=== PATIENT | male | born 1965 | race Two or more races ===

== ENCOUNTER 2022-07-07 09:03 | Inpatient (IN) | payer OTHER ==
[~2022-07-07] VITALS: Ht 185.4 cm; Wt 68.2 kg
[2022-07-07 09:44] LABS: Urine Bacteria NONE SEEN /hpf (None Seen); Urine Blood Negative /uL (Negative); Urine Hyaline Cast FEW /lpf (0 - 2); Urine Mucus FEW (None Seen); Urine Specific Gravity 1.023 (1.001-1.035); Urine WBC 1 /hpf (0 - 3)
[2022-07-07 10:58] LABS: Albumin 3.2 g/dL (3.4-5.0); Calcium 8.8 mg/dL (8.5-10.1); Potassium 4.3 mmol/L (3.5-5.1)
[2022-07-07 11:07] LABS: Bilirubin, Total 0.4 mg/dL (0.2-1.0); Total Protein 6.2 g/dL (6.4-8.2)
[2022-07-07 12:04] LABS: Basophils # (auto) 0 10 ^3/uL (0-0.2); Eosinophils # (auto) 0.1 10 ^3/uL (0-0.8); Lymphocytes # (auto) 1.8 10 ^3/uL (0.4-5.4); Monocytes # (auto) 0.8 10 ^3/uL (0-1.3); Nucleated Red Blood Cells % 0.1 %
[2022-07-07 12:06] LABS: Basophils % (auto) 0.3 % (0.0-2.0); Eosinophils % (auto) 0.7 % (0.0-7.0); Hematocrit 44.1 % (41.0-53.0); Hemoglobin 14.1 g/dL (13.5-17.5); Mean Corpuscular Hemoglobin 31.5 pg (28.0-32.0); Mean Corpuscular Volume 98.5 fL (80.0-100.0); Monocytes % (auto) 7.5 % (0.0-12.0); Neutrophils # (auto) 7.7 10 ^3/uL (1.6-8.6); Neutrophils % (auto) 74.5 % (37.0-80.0); Red Blood Cells 4.47 10^6/uL (4.5-5.90); Red Cell Distribution Width 14.9 % (11.8-14.3); White Blood Cell 10.4 10^3/uL (4.4-10.8)
[2022-07-07] MEDS ORDERED: metroNIDAZOLE 500MG/100ML 100 ML IV ONE (12:15)
[2022-07-07] MEDS ORDERED: cefTRIAXone 1GM/50ML D5W 50 ML IV ONE (12:15)
[2022-07-07] MEDS ORDERED: MORPHINE SULFATE INJ 2 MG/ml SYRG IV PRN (14:15)
[2022-07-07] MEDS ORDERED: DOCUSATE SOD 100 MG CAP PO PRN (14:15)
[2022-07-07] MEDS ORDERED: MAGNESIUM SULFATE 1GM/100ML 200 ML IV ONE (14:15)
[2022-07-07] MEDS ORDERED: ONDANSETRON HCL 4 MG/2 ML VIAL IV PRN (14:15)
[2022-07-07] MEDS ORDERED: LORazepam 2MG/ML-1ML VIAL IV PRN (14:15)
[2022-07-07] MEDS: SODIUM CHLORIDE 0.9% 1,000 ML IV SCH (14:15)
[2022-07-07] MEDS ORDERED: FOLIC ACID 1 mg/0.2ml INJECTION INJ ONE (14:45)
[2022-07-07] MEDS ORDERED: THIAMINE 100mg/ml INJ (200mg/2ml VIAL) IV ONE (14:45)
[2022-07-07] MEDS ORDERED: MULTIPLE VITAMIN 10 ML in SODIUM CHLORIDE 0.9% 1,000 ML IV ONE (15:00)
[2022-07-07 15:16] LABS: Blood Alcohol < 3.0 mg/dL (0-5); Magnesium 2.1 mg/dL (1.6-2.6)
[2022-07-07] MEDS ORDERED: MULTIPLE VITAMINS W/ MINERALS TAB PO ONE (15:30)
[2022-07-08] MEDS: SODIUM CHLORIDE 0.9% 1,000 ML IV SCH ×4 (02:00→23:35)
[2022-07-08 05:00] VITALS: BP 122/68
[2022-07-08 06:39] LABS: Basophils # (auto) 0.1 10 ^3/uL (0-0.2); Basophils % (auto) 0.7 % (0.0-2.0); Eosinophils # (auto) 0.2 10 ^3/uL (0-0.8); Hematocrit 42.8 % (41.0-53.0); Hemoglobin 13.9 g/dL (13.5-17.5); Lymphocytes # (auto) 2.3 10 ^3/uL (0.4-5.4); Lymphocytes % (auto) 27.6 % (10.0-50.0); Mean Corpuscular Hemoglobin 31.8 pg (28.0-32.0); Mean Corpuscular Hgb Conc. 32.4 g/dL (32.0-36.0); Mean Corpuscular Volume 98.1 fL (80.0-100.0); Monocytes # (auto) 0.7 10 ^3/uL (0-1.3); Monocytes % (auto) 8.6 % (0.0-12.0); Neutrophils % (auto) 61.1 % (37.0-80.0); Red Blood Cells 4.37 10^6/uL (4.5-5.90); Red Cell Distribution Width 14.4 % (11.8-14.3); White Blood Cell 8.2 10^3/uL (4.4-10.8)
[2022-07-08 07:22] LABS: Albumin 3.1 g/dL (3.4-5.0); BUN/Creatinine Ratio 13.7; Bilirubin, Total 0.7 mg/dL (0.2-1.0); Calcium 8.5 mg/dL (8.5-10.1); Total Protein 6.2 g/dL (6.4-8.2)
[2022-07-08 09:22] VITALS: BP 147/78
[2022-07-08] MEDS ORDERED: FOLIC ACID 1 MG TAB PO ONE (11:15)
[2022-07-08] MEDS: cefTRIAXone 1GM/50ML D5W 50 ML IV SCH (11:43)
[2022-07-08] MEDS: POLYETHYLENE GLYCOL 17 GM PWDR PO SCH (11:44)
[2022-07-08] MEDS: ENOXAPARIN SOD 40 MG/0.4 ML SYRINGE SC SCH (11:44)
[2022-07-08] MEDS: chlordiazePOXIDE HCL 25 MG CAP PO SCH ×3 (11:48→23:36)
[2022-07-08 12:48] VITALS: BP 139/80
[2022-07-08 16:11] VITALS: BP 142/91
[2022-07-08 22:00] VITALS: BP 126/68
[2022-07-09] MEDS: SODIUM CHLORIDE 0.9% 1,000 ML IV SCH ×3 (02:00→19:01)
[2022-07-09 05:00] VITALS: BP 145/84
[2022-07-09] MEDS: chlordiazePOXIDE HCL 25 MG CAP PO SCH ×3 (05:26→18:53)
[2022-07-09 08:57] VITALS: BP 143/81
[2022-07-09] MEDS: cefTRIAXone 1GM/50ML D5W 50 ML IV SCH (10:03)
[2022-07-09] MEDS: FOLIC ACID 1 MG TAB PO SCH (10:04)
[2022-07-09] MEDS: ENOXAPARIN SOD 40 MG/0.4 ML SYRINGE SC SCH (10:04)
[2022-07-09] MEDS: THIAMINE 100mg/ml INJ (200mg/2ml VIAL) IV SCH (10:04)
[2022-07-09] MEDS: POLYETHYLENE GLYCOL 17 GM PWDR PO SCH (10:04)
[2022-07-09 12:59] VITALS: BP 137/72
[2022-07-09 16:54] VITALS: BP 129/76
[2022-07-09 22:00] VITALS: BP 132/88
[2022-07-10] MEDS: chlordiazePOXIDE HCL 25 MG CAP PO SCH ×4 (01:12→17:59)
[2022-07-10] MEDS: SODIUM CHLORIDE 0.9% 1,000 ML IV SCH ×3 (04:18→17:15)
[2022-07-10 05:00] VITALS: BP 148/83
[2022-07-10 09:00] VITALS: BP 150/82
[2022-07-10] MEDS: POLYETHYLENE GLYCOL 17 GM PWDR PO SCH (10:00)
[2022-07-10] MEDS: THIAMINE 100mg/ml INJ (200mg/2ml VIAL) IV SCH (10:09)
[2022-07-10] MEDS: ENOXAPARIN SOD 40 MG/0.4 ML SYRINGE SC SCH (10:09)
[2022-07-10] MEDS: methylPREDNISolone SOD SUCC 125 MG/2 ML VL IV SCH ×3 (10:09→22:34)
[2022-07-10] MEDS: cefTRIAXone 1GM/50ML D5W 50 ML IV SCH (10:10)
[2022-07-10] MEDS: FOLIC ACID 1 MG TAB PO SCH (10:10)
[2022-07-10] MEDS ORDERED: TRAM50TA2 PO (12:16)
[2022-07-10] MEDS ORDERED: THIA100T5 PO (12:16)
[2022-07-10] MEDS ORDERED: LEVO500T31 PO (12:16)
[2022-07-10] MEDS ORDERED: CHL25C PO (12:16)
[2022-07-10] MEDS ORDERED: FOLI1TAB6 PO (12:16)
[2022-07-10] MEDS ORDERED: METH4PAK PO (12:17)
[2022-07-10 12:36] VITALS: BP 128/84
[2022-07-10 17:00] VITALS: BP 102/68
[2022-07-10 22:00] VITALS: BP 116/73
[2022-07-11] MEDS: chlordiazePOXIDE HCL 25 MG CAP PO SCH ×4 (00:11→18:15)
[2022-07-11] MEDS: SODIUM CHLORIDE 0.9% 1,000 ML IV SCH ×3 (01:35→18:15)
[2022-07-11 05:00] VITALS: BP 119/67
[2022-07-11] MEDS: methylPREDNISolone SOD SUCC 125 MG/2 ML VL IV SCH (06:18)
[2022-07-11 08:00] VITALS: BP 142/85
[2022-07-11] MEDS: THIAMINE 100mg/ml INJ (200mg/2ml VIAL) IV SCH (09:33)
[2022-07-11] MEDS: ENOXAPARIN SOD 40 MG/0.4 ML SYRINGE SC SCH (09:33)
[2022-07-11] MEDS: levoFLOXacin 500 MG TAB PO SCH (09:34)
[2022-07-11] MEDS: FOLIC ACID 1 MG TAB PO SCH (09:34)
[2022-07-11] MEDS: POLYETHYLENE GLYCOL 17 GM PWDR PO SCH (09:36)
[2022-07-11 12:00] VITALS: BP 107/68
[2022-07-11 16:00] VITALS: BP 115/59
[2022-07-11 22:00] VITALS: BP 152/80
[2022-07-12] MEDS: chlordiazePOXIDE HCL 25 MG CAP PO SCH ×5 (00:04→23:47)
[2022-07-12] MEDS: SODIUM CHLORIDE 0.9% 1,000 ML IV SCH ×3 (02:35→20:12)
[2022-07-12 05:00] VITALS: BP 144/86
[2022-07-12 08:22] VITALS: BP 148/92
[2022-07-12] MEDS: FOLIC ACID 1 MG TAB PO SCH (10:30)
[2022-07-12] MEDS: ENOXAPARIN SOD 40 MG/0.4 ML SYRINGE SC SCH (10:31)
[2022-07-12] MEDS: POLYETHYLENE GLYCOL 17 GM PWDR PO SCH (10:31)
[2022-07-12] MEDS: levoFLOXacin 500 MG TAB PO SCH (10:31)
[2022-07-12] MEDS: THIAMINE 100mg/ml INJ (200mg/2ml VIAL) IV SCH (11:00)
[2022-07-12 12:38] VITALS: BP 137/79
[2022-07-12 16:24] VITALS: BP 142/78
[2022-07-13 05:00] VITALS: BP 145/83
[2022-07-13] MEDS: SODIUM CHLORIDE 0.9% 1,000 ML IV SCH ×3 (05:49→20:15)
[2022-07-13] MEDS: chlordiazePOXIDE HCL 25 MG CAP PO SCH ×3 (05:49→17:52)
[2022-07-13 09:00] VITALS: BP 145/70
[2022-07-13] MEDS: POLYETHYLENE GLYCOL 17 GM PWDR PO SCH (09:54)
[2022-07-13] MEDS: levoFLOXacin 500 MG TAB PO SCH (09:54)
[2022-07-13] MEDS: ENOXAPARIN SOD 40 MG/0.4 ML SYRINGE SC SCH (09:55)
[2022-07-13] MEDS: THIAMINE 100mg/ml INJ (200mg/2ml VIAL) IV SCH (10:02)
[2022-07-13] MEDS: FOLIC ACID 1 MG TAB PO SCH (10:03)
[2022-07-13 13:00] VITALS: BP 155/86
[2022-07-13 17:00] VITALS: BP 150/82
[2022-07-13 22:00] VITALS: BP 165/94
[2022-07-14] MEDS: chlordiazePOXIDE HCL 25 MG CAP PO SCH ×5 (00:01→23:27)
[2022-07-14] MEDS: SODIUM CHLORIDE 0.9% 1,000 ML IV SCH ×2 (04:35→12:55)
[2022-07-14 05:00] VITALS: BP 145/78
[2022-07-14 08:54] VITALS: BP 155/83
[2022-07-14] MEDS: POLYETHYLENE GLYCOL 17 GM PWDR PO SCH (10:00)
[2022-07-14] MEDS: THIAMINE 100mg/ml INJ (200mg/2ml VIAL) IV SCH (10:04)
[2022-07-14] MEDS: levoFLOXacin 500 MG TAB PO SCH (10:05)
[2022-07-14] MEDS: FOLIC ACID 1 MG TAB PO SCH (10:05)
[2022-07-14] MEDS: ENOXAPARIN SOD 40 MG/0.4 ML SYRINGE SC SCH (10:08)
[2022-07-14 13:00] VITALS: BP 149/72
[2022-07-14 17:00] VITALS: BP 154/93
[2022-07-14 22:00] VITALS: BP 169/99
[2022-07-14] MEDS ORDERED: hydrALAZINE HCL 10 MG TAB PO PRN (23:00)
[2022-07-15 05:00] VITALS: BP 156/95
[2022-07-15] MEDS: chlordiazePOXIDE HCL 25 MG CAP PO SCH ×3 (05:27→18:40)
[2022-07-15] MEDS ORDERED: hydrALAZINE HCL 10 MG TAB PO SCH (06:00)
[2022-07-15 07:30] VITALS: BP 167/94
[2022-07-15 09:00] VITALS: BP 126/89
[2022-07-15] MEDS: levoFLOXacin 500 MG TAB PO SCH (09:46)
[2022-07-15] MEDS: FOLIC ACID 1 MG TAB PO SCH (09:46)
[2022-07-15] MEDS: ENOXAPARIN SOD 40 MG/0.4 ML SYRINGE SC SCH (09:57)
[2022-07-15] MEDS: POLYETHYLENE GLYCOL 17 GM PWDR PO SCH (09:57)
[2022-07-15] MEDS: THIAMINE 100mg/ml INJ (200mg/2ml VIAL) IV SCH (10:00)
[2022-07-15 13:00] VITALS: BP 133/91
[2022-07-15 17:00] VITALS: BP 103/68
[2022-07-15 22:00] VITALS: BP 112/77
[2022-07-16] MEDS: chlordiazePOXIDE HCL 25 MG CAP PO SCH ×4 (00:12→18:00)
[2022-07-16 05:00] VITALS: BP 128/84
[2022-07-16 08:00] VITALS: BP 121/75
[2022-07-16 09:00] VITALS: BP 121/75
[2022-07-16] MEDS: THIAMINE 100mg/ml INJ (200mg/2ml VIAL) IV SCH (10:00)
[2022-07-16] MEDS: POLYETHYLENE GLYCOL 17 GM PWDR PO SCH (10:00)
[2022-07-16] MEDS: ENOXAPARIN SOD 40 MG/0.4 ML SYRINGE SC SCH (10:05)
[2022-07-16] MEDS: levoFLOXacin 500 MG TAB PO SCH (10:05)
[2022-07-16] MEDS: FOLIC ACID 1 MG TAB PO SCH (10:05)
[2022-07-16 13:00] VITALS: BP 103/67
[2022-07-16 17:00] VITALS: BP 112/74
[2022-07-16 22:00] VITALS: BP 121/79
[2022-07-17 05:00] VITALS: BP 108/74
[2022-07-17] MEDS: chlordiazePOXIDE HCL 25 MG CAP PO SCH ×4 (05:14→17:37)
[2022-07-17 08:00] VITALS: BP 120/62
[2022-07-17 09:00] VITALS: BP 120/62
[2022-07-17] MEDS: levoFLOXacin 500 MG TAB PO SCH (09:50)
[2022-07-17] MEDS: FOLIC ACID 1 MG TAB PO SCH (09:50)
[2022-07-17] MEDS: THIAMINE 100mg/ml INJ (200mg/2ml VIAL) IV SCH (09:50)
[2022-07-17] MEDS: POLYETHYLENE GLYCOL 17 GM PWDR PO SCH (09:51)
[2022-07-17] MEDS: ENOXAPARIN SOD 40 MG/0.4 ML SYRINGE SC SCH (09:51)
[2022-07-17 13:00] VITALS: BP 116/73
[2022-07-17 17:00] VITALS: BP 136/87
[2022-07-17 22:00] VITALS: BP 122/71
[2022-07-18] MEDS: HYDROcodone-ACET 5/325MG TAB PO PRN (01:07)
[2022-07-18 05:00] VITALS: BP 145/59
[2022-07-18] MEDS: chlordiazePOXIDE HCL 25 MG CAP PO SCH ×5 (05:12→23:53)
[2022-07-18 09:00] VITALS: BP 109/73
[2022-07-18] MEDS: THIAMINE 100mg/ml INJ (200mg/2ml VIAL) IV SCH (10:00)
[2022-07-18] MEDS: ENOXAPARIN SOD 40 MG/0.4 ML SYRINGE SC SCH (10:00)
[2022-07-18] MEDS: POLYETHYLENE GLYCOL 17 GM PWDR PO SCH (10:44)
[2022-07-18] MEDS: FOLIC ACID 1 MG TAB PO SCH (10:45)
[2022-07-18] MEDS: levoFLOXacin 500 MG TAB PO SCH (10:45)
[2022-07-18 12:37] VITALS: BP 126/80
[2022-07-18 17:00] VITALS: BP 112/70
[2022-07-18 22:00] VITALS: BP 122/80
[2022-07-19] MEDS: HYDROcodone-ACET 5/325MG TAB PO PRN (03:07)
[2022-07-19 05:00] VITALS: BP 123/81
[2022-07-19] MEDS: chlordiazePOXIDE HCL 25 MG CAP PO SCH ×2 (06:43→09:22)
[2022-07-19 08:33] LABS: Basophils # (auto) 0 10 ^3/uL (0-0.2); Basophils % (auto) 0.4 % (0.0-2.0); Eosinophils # (auto) 0.3 10 ^3/uL (0-0.8); Eosinophils % (auto) 2.4 % (0.0-7.0); Hematocrit 46.1 % (41.0-53.0); Hemoglobin 15.2 g/dL (13.5-17.5); Lymphocytes # (auto) 3.3 10 ^3/uL (0.4-5.4); Lymphocytes % (auto) 29.1 % (10.0-50.0); Mean Corpuscular Hemoglobin 31.9 pg (28.0-32.0); Mean Corpuscular Volume 96.7 fL (80.0-100.0); Monocytes # (auto) 1.2 10 ^3/uL (0-1.3); Monocytes % (auto) 10.4 % (0.0-12.0); Neutrophils # (auto) 6.5 10 ^3/uL (1.6-8.6); Neutrophils % (auto) 57.7 % (37.0-80.0); Red Blood Cells 4.77 10^6/uL (4.5-5.90); Red Cell Distribution Width 14.1 % (11.8-14.3); White Blood Cell 11.4 10^3/uL (4.4-10.8)
[2022-07-19 08:47] LABS: Calcium 9.2 mg/dL (8.5-10.1); Potassium 4.4 mmol/L (3.5-5.1)
[2022-07-19 08:50] LABS: Albumin 3.4 g/dL (3.4-5.0)
[2022-07-19 08:53] LABS: Bilirubin, Total 0.3 mg/dL (0.2-1.0); Total Protein 6.6 g/dL (6.4-8.2)
[2022-07-19 08:55] VITALS: BP 114/71
[2022-07-19] MEDS: ENOXAPARIN SOD 40 MG/0.4 ML SYRINGE SC SCH (09:21)
[2022-07-19] MEDS: FOLIC ACID 1 MG TAB PO SCH (09:21)
[2022-07-19] MEDS: POLYETHYLENE GLYCOL 17 GM PWDR PO SCH (09:21)
[2022-07-19 13:00] VITALS: BP 113/68
== END 2022-07-19 19:06 | disposition home or self-care (01) | DRG 282 ==
LOC: ER 09:03 → EDBD 09:03 → TELE 14:24 → TELE-WESTW 20:22
PROVIDERS: ADMIT Nurse Practitioner Family; ATTEND Student in an Organized Health Care Education/Training Program
DX: K85.10 Biliary acute pancreatitis without necrosis or infection (principal); E44.0 Moderate protein-calorie malnutrition; M48.56XA Collapsed vertebra, not elsewhere classified, lumbar region, initial encounter for fracture; E88.09 Other disorders of plasma-protein metabolism, not elsewhere classified; M48.54XA Collapsed vertebra, not elsewhere classified, thoracic region, initial encounter for fracture; R33.9 Retention of urine, unspecified; K59.00 Constipation, unspecified; J98.11 Atelectasis; Z20.822 Contact with and (suspected) exposure to COVID-19; F10.10 Alcohol abuse, uncomplicated; N39.490 Overflow incontinence; F17.200 Nicotine dependence, unspecified, uncomplicated; M48.062 Spinal stenosis, lumbar region with neurogenic claudication; Z59.01 Sheltered homelessness; Z88.0 Allergy status to penicillin; Z68.20 Body mass index [BMI] 20.0-20.9, adult; Z71.6 Tobacco abuse counseling; K57.30 Diverticulosis of large intestine without perforation or abscess without bleeding; M43.10 Spondylolisthesis, site unspecified
CPT/HCPCS: 36415; 70450; 72148; 72192; 74176; 80053; 80320; 81001; 83605; 83690; 83735; 84484; 85025; 87040; 87426; 97116; 97163; 97530; G0378; J0696; J3490